=== PATIENT | male | born 1960 | race Caucasian/White ===

== ENCOUNTER 2016-09-20 20:41 | Emergency (ER) | payer OTHER ==
--- NOTE | 2016-09-20 22:01 | RAD ---
HISTORY: Left middle finger injury COMPARISONS: None VIEWS: 3, Frontal, lateral, and oblique views of the third digit of left hand FINDINGS: BONE DENSITY: Normal. BONES: There is a minimally displaced fracture of the dorsal aspect of the base of the distal phalanx of the third digit with articular extension of the DIP joint. JOINTS: There is no arthropathy. ALIGNMENT: There is no dislocation. SOFT TISSUES: Unremarkable. OTHER FINDINGS: None. IMPRESSION: MINIMALLY DISPLACED FRACTURE OF THE BASE OF THE DISTAL PHALANX OF THE THIRD DIGIT WITH ARTICULAR EXTENSION
--- NOTE | 2016-09-20 23:19 | ED ---
Upper Extremity Pain - HPI Summary HPI Summary: 56M presents with left middle finger injury s/p getting it crushed by a dumpster. He states that is pinched up at his DIP joint. He has a couple abrasion on the palmar aspect of his finger that he cleaned with peroxide. His tetanus is up to date in the past couple years. He has limited ROM at DIP. He is right handed. He took ibuprofen for pain. He denies any previous injury to the area. - History of Current Complaint Chief Complaint: EDExtremityUpper Stated Complaint: LT MIDDLE FINGER INJURY Time Seen by Provider: 09/20/16 22:53 - Allergies/Home Medications Allergies/Adverse Reactions: Allergies Allergy/AdvReac Type Severity Reaction Status Date / Time No Known Allergies Allergy Verified 09/20/16 20:47 PMH/Surg Hx/FS Hx/Imm Hx Endocrine/Hematology History: Denies: Hx Anticoagulant Therapy, Hx Diabetes Cardiovascular History: Reports: Hx Hypertension Infectious Disease History: No Infectious Disease History: Denies: Traveled Outside the [place] in Last 30 Days - Family History Known Family History: Negative: Diabetes - Social History Alcohol Use: Occasionally Substance Use Type: Reports: None Smoking Status (MU): Never Smoked Tobacco Review of Systems Negative: Fever Negative: Chest Pain Negative: Shortness Of Breath Positive: Decreased ROM - left middle finger Positive: Other - abrasion left middle finger All Other Systems Reviewed And Are Negative: Yes Physical Exam Triage Information Reviewed: Yes Vital Signs On Initial Exam: Initial Vitals Temp Pulse Resp BP Pulse Ox 98.3 F 79 16 136/87 98 09/20/16 20:45 09/20/16 20:45 09/20/16 20:45 09/20/16 20:45 09/20/16 20:45 Vital Signs Reviewed: Yes Appearance: Positive: Well-Appearing Skin: Positive: Warm, Dry, Other - two abrasion of left middle finger on palmar aspect of finger Head/Face: Positive: Normal Head/Face Inspection Eyes: Positive: Normal, Conjunctiva Clear Respiratory/Lung Sounds: Positive: Clear to Auscultation, Breath Sounds Present Cardiovascular: Positive: Normal, RRR Musculoskeletal: Positive: Strength/ROM Intact - PIP, Limited @ - DIP of left middle finger, Other - good pulses, capillary refil<2 secs, ecchymosis near DIP with edema there Procedures - Splinting Location: left middle finger Pre-Made Type: metal Splint: u splint Pre-Proc Neuro Vasc Exam: normal Diagnostics - Vital Signs Vital Signs Temp Pulse Resp BP Pulse Ox 09/20/16 20:45 98.3 F 79 16 136/87 98 - Laboratory Lab Statement: Any lab studies that have been ordered have been reviewed, and results considered in the medical decision making process. Course/Dx - Course Course Of Treatment: 56M presents with left middle finger injury s/p getting it crushed by a dumpster. He states that is pinched up at his DIP joint. He has a couple abrasion on the palmar aspect of his finger that he cleaned with peroxide. His tetanus is up to date in the past couple years. He has limited ROM at DIP. limited ROM at DIP. xray shows fracture there. decided to place on ppx antibiotic due to abrasion present on finger is not an open fracture that can see. place in u splint. told to follow up with ortho. patient understands and agrees with plan - Diagnoses Differential Diagnosis/HQI/PQRI: Positive: Fracture (Closed), Strain, Sprain Provider Diagnoses: Fracture of distal phalanx of left middle finger Discharge - Discharge Plan Condition: Good Disposition: HOME Prescriptions: Amoxicillin/Clavulanate TAB* [Augmentin TAB 500 mg*] 500 mg PO BID #9 tab Patient Education Materials: Finger Fracture (ED) Referrals: Best Cardenas MD [Primary Care Provider] - Viviana Grace MD [Medical Doctor] - Additional Instructions: Keep splint on area until seen by ortho Take antibiotic twice a day for 5 days to prophylaxis for infection Take ibuprofen for pain every 6 hours Return to ED if develop any new or worsening symptoms
[2016-09-20] MEDS ORDERED: Amoxicillin/Clavulanate TAB* 500 MG PO ONE (23:20)
[2016-09-21 00:37] VITALS: BP 129/80
== END 2016-09-21 | disposition home or self-care (01) ==
LOC: ED 20:41
DX: S62.633A Displaced fracture of distal phalanx of left middle finger, initial encounter for closed fracture (principal); S60.413A Abrasion of left middle finger, initial encounter; W23.0XXA Caught, crushed, jammed, or pinched between moving objects, initial encounter; Y93.9 Activity, unspecified; Y92.9 Unspecified place or not applicable; I10 Essential (primary) hypertension
CPT/HCPCS: 73140; 99282; A9270-GY

== ENCOUNTER 2016-12-20 09:55 | Emergency (ER) | payer OTHER ==
[2016-12-20 12:01] VITALS: BP 123/83
--- NOTE | 2016-12-20 12:23 | ED ---
Skin Complaint - HPI Summary HPI Summary: Patient presents to the ED after finding a tick to the left chest. Denies any symptoms. Denies rash, neuro symptoms, joint aches, etc. Denies fevers, sweats and chills. Denies abd pain, N/V/C/D. He has had rashes in the past after tick bites, but has never had symptoms. He comes today with concern over lyme disease. He has tick with him. He states the tick was not there on tuesday night when he showered, but noticed it on Tuesday morning and was able to dislodge the tick. He comes in today (3 days later) still with no symptoms. - History of Current Complaint Chief Complaint: EDRashSkinAbscess Time Seen by Provider: 12/20/16 10:30 Stated Complaint: TICK Hx Obtained From: Patient Onset/Duration: Started Days Ago Skin Exposure Onset/Duration: Days Ago Timing: Constant Onset Severity: Mild Current Severity: None Pain Intensity: 0 Pain Scale Used: 0-10 Numeric Skin Location: Discrete - left anterior chest Aggravating Symptom(s): Nothing Alleviating Symptom(s): Nothing Associated Signs & Symptoms: Negative Related History: Insect Bite/Sting - Allergy/Home Medications Allergies/Adverse Reactions: Allergies Allergy/AdvReac Type Severity Reaction Status Date / Time No Known Allergies Allergy Verified 12/20/16 10:24 PMH/Surg Hx/FS Hx/Imm Hx Previously Healthy: Yes Endocrine/Hematology History: Denies: Hx Anticoagulant Therapy, Hx Diabetes Cardiovascular History: Reports: Hx Hypertension - Immunization History Date of Tetanus Vaccine: in last ten years Date of Influenza Vaccine: never Hx Pertussis Vaccination: No Immunizations Up to Date: Unable to Obtain/Confirm Infectious Disease History: No Infectious Disease History: Denies: Traveled Outside the [place] in Last 30 Days - Family History Known Family History: Negative: Diabetes - Social History Occupation: Employed Full-time Lives: With Family Alcohol Use: Occasionally Hx Substance Use: No Substance Use Type: Reports: None Hx Tobacco Use: No Smoking Status (MU): Never Smoked Tobacco Review of Systems Constitutional: Negative Negative: Fever, Chills, Fatigue Eyes: Negative ENT: Negative Negative: Palpitations, Chest Pain Negative: Shortness Of Breath, Cough Positive: no symptoms reported, see HPI Negative: Arthralgia, Myalgia, Decreased ROM Positive: Other - small 1cm erythematous, non-pruritic lesion with no bullseye rash or warmth. Negative: Rash, Bruising Neurological: Negative Psychological: Normal All Other Systems Reviewed And Are Negative: Yes Physical Exam Triage Information Reviewed: Yes Vital Signs On Initial Exam: Initial Vitals Temp Pulse Resp BP Pulse Ox 96.8 F 51 16 154/88 97 12/20/16 10:20 12/20/16 10:20 12/20/16 10:20 12/20/16 10:20 12/20/16 10:20 Vital Signs Reviewed: Yes Appearance: Positive: Well-Appearing, No Pain Distress, Well-Nourished Skin: Positive: Skin Color Reflects Adequate Perfusion, Other - small 1cm erythematous, non-pruritic lesion with no bullseye rash or warmth Head/Face: Positive: Normal Head/Face Inspection Eyes: Positive: EOMI, DOROTHY Respiratory/Lung Sounds: Positive: Clear to Auscultation, Breath Sounds Present Cardiovascular: Positive: RRR, Pulses are Symmetrical in both Upper and Lower Extremities Musculoskeletal: Positive: Normal, Strength/ROM Intact Neurological: Positive: Sensory/Motor Intact, Alert, Oriented to Person Place, Time, Speech Normal Psychiatric: Positive: Normal AVPU Assessment: Alert Diagnostics - Vital Signs Vital Signs Temp Pulse Resp BP Pulse Ox 12/20/16 11:51 98.4 F 60 16 123/83 100 12/20/16 10:20 96.8 F 51 16 154/88 97 - Laboratory Lab Statement: Any lab studies that have been ordered have been reviewed, and results considered in the medical decision making process. Course/Dx - Course Course Of Treatment: Patient presents to the ED with small 1cm erythematous, non -pruritic lesion with no bullseye rash or warmth after a tick bite. Denies any symptoms. Discussed ISDA guidelines : 1.Attached tick was not identified as an adult or nymphal I. scapularis tick (deer tick). 2.Tick is not estimated to have been attached for 36 hours (by degree of engorgement or time of exposure). 3.Prophylaxis should begin within 72 hours of tick removal. He is currently here after aproximately 72 hours. Based on these guildelines, it is recommended he not get the prophylactic doxycycline. He also notes to IBS issues , which would be exacerbated by the doxy. He agrees with plan to not begin the doxycycline at this time and will return if he develops any symptoms including rash. - Differential Diagnoses - Skin Complaint Differential Diagnoses: Other - tick bite - Diagnoses Provider Diagnoses: Tick bite Discharge - Discharge Plan Condition: Stable Disposition: HOME Patient Education Materials: Lyme Disease (ED), Tick Bite (ED) Referrals: Pablito Morales MD [Primary Care Provider] - Additional Instructions: Approach to prophylaxis : According to the Infectious Diseases Society of [place] (IDSA) guidelines that recommend antibiotic prophylaxis only in patients who meet all of the following criteria: 1. Attached tick identified as an adult or nymphal I. scapularis tick (deer tick). 2. Tick is estimated to have been attached for 36 hours (by degree of engorgement or time of exposure). 3. Prophylaxis is begun within 72 hours of tick removal. Local rate of infection of ticks with B. burgdorferi is 20 percent if attached for over 48 hours (these rates of infection have been shown to occur in parts of [place], parts of the [facility], and parts of [place] and [place]). If you experience a tick and time of attachment is believed to be less than 36 hours, you may remove the tick with head intact and no need for prophylaxis. If over 36 hours, please come into UC. Prophylactic doxycycline is not recommended for ticks attached less than 36 hours.
== END 2016-12-20 12:00 | disposition home or self-care (01) ==
LOC: ED 09:55
DX: S20.362A Insect bite (nonvenomous) of left front wall of thorax, initial encounter (principal); W57.XXXA Bitten or stung by nonvenomous insect and other nonvenomous arthropods, initial encounter; Y93.9 Activity, unspecified; Y92.9 Unspecified place or not applicable; I10 Essential (primary) hypertension; Z11.4 Encounter for screening for human immunodeficiency virus [HIV]
CPT/HCPCS: 36415; 86703; 99282

== ENCOUNTER 2017-11-02 19:21 | Emergency (ER) | payer OTHER ==
[2017-11-02 19:35] VITALS: BP 130/81
--- NOTE | 2017-11-02 22:46 | UC ---
General HPI - HPI Summary HPI Summary: Yesterday developed slight tongue discomfort and saw that it had whitish discoloration. Patient is a nonsmoker. Does not use smokeless tobacco. Admits he does not brush his teeth regularly and never brushes his tongue. No tongue or lip swelling. No respiratory difficulty. No difficulty swallowing. - History of Current Complaint Chief Complaint: UCDentalProblem Stated Complaint: TONGUE COMPLAINT Time Seen by Provider: 11/02/17 19:46 Hx Obtained From: Patient Onset/Duration: Gradual Onset, Lasting Days - 1 DAY, Still Present Timing: Constant Onset Severity: Mild Current Severity: Mild Pain Intensity: 1 - Allergy/Home Medications Allergies/Adverse Reactions: Allergies Allergy/AdvReac Type Severity Reaction Status Date / Time No Known Allergies Allergy Verified 11/02/17 19:35 Home Medications: Home Medications diphenhydrAMINE HCl [Benadryl Allergy 25 MG CAP] 1 tab PO ONCE 11/02/17 [ History Confirmed 11/02/17] PMH/Surg Hx/FS Hx/Imm Hx Previously Healthy: Yes - Surgical History Surgical History: None - Family History Known Family History: Negative: Hypertension - Social History Alcohol Use: Rare Substance Use Type: None Smoking Status (MU): Never Smoked Tobacco Review of Systems Constitutional: Negative ENT: Other - TONGUE DISCOMFORT Respiratory: Negative Cardiovascular: Negative Gastrointestinal: Negative All Other Systems Reviewed And Are Negative: Yes Physical Exam Triage Information Reviewed: Yes Appearance: Well-Appearing, No Pain Distress, Well-Nourished Vital Signs: Initial Vital Signs Temp 98.0 F 11/02/17 19:32 Pulse 68 11/02/17 19:32 Resp 12 11/02/17 19:32 BP 130/81 11/02/17 19:32 Pulse Ox 98 11/02/17 19:32 Vital Signs Reviewed: Yes Eyes: Positive: Conjunctiva Clear ENT: Positive: Hearing grossly normal, Pharynx normal, TMs normal, Other - TONGUE NOT SWOLLEN OR INFLAMED BUT HAS A BUILD UP OF APPARENT SLOUGHED EPITHELIUM COATING THE BACK. NON TENDER Neck: Positive: Supple, Nontender, No Lymphadenopathy Respiratory Exam: Normal Cardiovascular Exam: Normal Abdomen Description: Positive: Soft Musculoskeletal: Positive: No Edema Neurological: Positive: Alert Psychological: Positive: Age Appropriate Behavior Skin: Negative: rashes Course/Dx - Differential Dx - Multi-Symptom Provider Diagnoses: POOR ORAL HYGIENEE/BUILD UP ON TONGUE Discharge - Sign-Out/Discharge Documenting (check all that apply): Patient Departure All imaging exams completed and their final reports reviewed: No Studies - Discharge Plan Condition: Stable Disposition: HOME Referrals: Pablito Morales MD [Primary Care Provider] - If Needed Additional Instructions: YOU HAVE SOME BUILD UP ON YOUR TONGUE THAT WILL LIKELY CLEAR WITH PROPER ORAL HYGIENE. BRUSH YOUR TEETH TWICE DAILY. GENTLY BRUSH YOUR TONGUE ONCE A DAY UNTIL THE FILM HAS RESOLVED. AFTER THAT BE SURE TO BRUSH YOUR TONGUE EVERY FEW DAYS TO KEEP THE SURFACE CLEAR OF BUILDUP. RINSE YOUR MOUTH WITH WATER AFTER EATING OR DRINKING ANYTHING AND STAY WELL HYDRATED OVERALL. IF YOU'RE NOT IMPROVING EXPECTED OVER THE NEXT FEW WEEKS FOLLOW-UP WITH YOUR PCP FOR FURTHER EVALUATION. [facility] Address: [facility] [place] [address] - Billing Disposition and Condition Condition: STABLE Disposition: Home
== END 2017-11-02 20:22 | disposition home or self-care (01) ==
LOC: EDSEX 19:21 → UCEAST 19:21 → MERGE 19:21 → UCEAST 20:22
DX: K14.8 Other diseases of tongue (principal); R46.0 Very low level of personal hygiene
CPT/HCPCS: 99201; G0463